=== PATIENT | male | born 1935 | race Caucasian/White ===

== ENCOUNTER 2020-07-16 15:44 | Inpatient (IN) ==
[2020-07-16] MEDS ORDERED: SODIUM CHLORIDE 0.9% 1,000 ML IV STA (18:16)
[2020-07-16 19:17] LABS: Basophils % 0.4 % (0.0-0.8); Eosinophils # 0.2 10*3/uL (0.0-0.87); Eosinophils % 1.4 % (0.00-10.9); Hematocrit 39.1 VOL% (42.0-52.0); Hemoglobin 12.4 GM/DL (14.0-18.0); Immature Granulocytes % 0.4 %; Immature Granulocytes Absolute 0.04 #; Lymphocytes # 1.8 10*3/uL (1.4-4.0); Lymphocytes % 16.5 % (21.2-54.2); Mean Corpuscular HGB Conc 31.7 GM/DL (32-36); Mean Corpuscular Volume 94.9 FL (87-102); Mean Platelet Volume 10.6 FL (9.6-12.0); Monocytes % 7.8 % (1.7-12.7); Neutrophils % 73.5 % (38.7-73.9); Platelet Count 229 T/CUMM (130-400); Red Blood Count 4.12 MC/CUMM (3.8-5.5); Red Cell Distribution Width 13.2 % (9.3-17.3); White Blood Count 10.9 T/CUMM (4-12)
[2020-07-16 19:27] LABS: PT Patient Result 10.8 SECS (9.8-11.9)
[2020-07-16 19:30] LABS: Bilirubin,Urine Negative (Negative); Blood, Urine Large mg/dL (Negative); Glucose,Urine (UA) 50 mg/dL (Negative); Hyaline Casts,Urine 1 /LPF (0-3); Ketones,Urine Negative (Negative); Mucus,Urine Occasional /LPF (Occasional); Nitrite,Urine Negative (Negative); Protein,Urine 100 MG/DL; RBC,Urine 178 /HPF (0-4); Squamous Epithelial Cell,Urine Occasional /HPF (0-10); Urine Appearance Slightly Hazy (Clear); Urine Color Yellow (Yellow); Urine Specific Gravity 1.012 (1.001-1.035); Urine Urobilinogen < 2.0 EU/DL (0.2-1.0); WBC,Urine 23 /HPF (0-6)
[2020-07-16 19:41] LABS: Albumin 3.8 G/DL (3.4-5.0); Bilirubin,Total 0.6 MG/DL (0.2-1.0); Calcium 10.2 MG/DL (8.5-10.1); Potassium 4.8 MMOL/L (3.5-5.1); Total Protein 6.5 G/DL (6.4-8.3)
[2020-07-16] MEDS ORDERED: cefTRIAXone 1,000 MG in SODIUM CHLORIDE 0.9% 100 ML IV STA (20:12)
[2020-07-16] MEDS ORDERED: diphenhydrAMINE CAP 25 MG CAPSULE PO PRN (20:23)
[2020-07-16] MEDS ORDERED: GLUCAGON 1 MG VIAL IM PRN (20:23)
[2020-07-16] MEDS ORDERED: ACETAMINOPHEN 325 MG TABLET PO PRN (20:23)
[2020-07-16] MEDS ORDERED: MORPHINE 4 MG/1 ML VIAL IV PRN (20:23)
[2020-07-16] MEDS ORDERED: NICOTINE 21 MG/24 HR PATCH TRANSDERM PRN (20:23)
[2020-07-16] MEDS ORDERED: DEXTROSE 50% 25 GM/50 ML VIAL IV PRN (20:23)
[2020-07-16] MEDS ORDERED: ONDANSETRON 4 MG/2 ML VIAL IV PRN (20:23)
[2020-07-16] MEDS ORDERED: guaiFENesin/DM ER 600-30 MG TABLET PO PRN (20:23)
[2020-07-16] MEDS ORDERED: BISACODYL 5 MG TABLET PO PRN (20:23)
[2020-07-16] MEDS ORDERED: hydrALAZINE 20 MG/1 ML VIAL IV PRN (20:23)
[2020-07-16] MEDS ORDERED: ALUMINUM/MAGNES/SIMETH MAX STR 30 ML UDCUP PO PRN (20:23)
[2020-07-16] MEDS: SODIUM CHLORIDE 0.9% 1,000 ML IV SCH (22:05)
[2020-07-16] MEDS: ENOXAPARIN 30 MG/0.3 ML SYRINGE SUBCUT SCH (22:20)
[2020-07-16] MEDS: cefTRIAXone 1,000 MG in SYRINGE 1 EACH IV SCH (22:21)
[2020-07-17] MEDS: ZALEPLON 5 MG CAPSULE PO PRN ×2 (00:40→21:46)
[2020-07-17] MEDS: SODIUM CHLORIDE 0.9% 1,000 ML IV SCH (10:20)
[2020-07-17] MEDS: PANTOPRAZOLE 40 MG TABLET PO SCH (10:20)
[2020-07-17] MEDS: ENOXAPARIN 30 MG/0.3 ML SYRINGE SUBCUT SCH (21:46)
[2020-07-17] MEDS: cefTRIAXone 1,000 MG in SYRINGE 1 EACH IV SCH (21:49)
[2020-07-18] MEDS: SODIUM CHLORIDE 0.9% 1,000 ML IV SCH ×2 (05:52→16:52)
[2020-07-18 06:10] LABS: Basophils # 0.1 10*3/uL (0.0-0.2); Basophils % 0.5 % (0.0-0.8); Eosinophils # 0.2 10*3/uL (0.0-0.87); Eosinophils % 1.8 % (0.00-10.9); Hematocrit 34.9 VOL% (42.0-52.0); Hemoglobin 11.5 GM/DL (14.0-18.0); Immature Granulocytes % 0.3 %; Immature Granulocytes Absolute 0.03 #; Lymphocytes # 1.7 10*3/uL (1.4-4.0); Mean Corpuscular Volume 93.6 FL (87-102); Mean Platelet Volume 11.2 FL (9.6-12.0); Monocytes % 8.6 % (1.7-12.7); Neutrophils % 69.8 % (38.7-73.9); Platelet Count 198 T/CUMM (130-400); Red Blood Count 3.73 MC/CUMM (3.8-5.5); White Blood Count 9.1 T/CUMM (4-12)
[2020-07-18 06:39] LABS: Calcium 9.6 MG/DL (8.5-10.1); Osmolality,Calculated 281.3 MOS/KG (273-304); Potassium 4.4 MMOL/L (3.5-5.1)
[2020-07-18] MEDS: PANTOPRAZOLE 40 MG TABLET PO SCH (12:17)
[2020-07-18] MEDS: ENOXAPARIN 40 MG/0.4 ML SYRINGE SUBCUT SCH (20:47)
[2020-07-18] MEDS: cefTRIAXone 1,000 MG in SYRINGE 1 EACH IV SCH (20:48)
[2020-07-19] MEDS: SODIUM CHLORIDE 0.9% 1,000 ML IV SCH (05:13)
[2020-07-19 06:38] LABS: Calcium 9.6 MG/DL (8.5-10.1); Osmolality,Calculated 282.1 MOS/KG (273-304)
[2020-07-19 07:11] LABS: Carcinoembryonic Antigen < 0.5 NG/ML (0.0-5.0)
[2020-07-19] MEDS: PANTOPRAZOLE 40 MG TABLET PO SCH (09:06)
[2020-07-19] MEDS: ZALEPLON 5 MG CAPSULE PO PRN (20:12)
[2020-07-19] MEDS: ENOXAPARIN 40 MG/0.4 ML SYRINGE SUBCUT SCH (20:12)
[2020-07-19] MEDS: cefTRIAXone 1,000 MG in SYRINGE 1 EACH IV SCH (20:12)
[2020-07-20] MEDS: PANTOPRAZOLE 40 MG TABLET PO SCH (09:58)
[2020-07-20] MEDS: cefTRIAXone 1,000 MG in SYRINGE 1 EACH IV SCH (20:45)
[2020-07-20] MEDS: ENOXAPARIN 40 MG/0.4 ML SYRINGE SUBCUT SCH (20:46)
[2020-07-20] MEDS: ZALEPLON 5 MG CAPSULE PO PRN (20:46)
[2020-07-20] MEDS: SODIUM CHLORIDE 0.9% 1,000 ML IV SCH (20:47)
[2020-07-21 08:49] LABS: Calcium 9.7 MG/DL (8.5-10.1); Osmolality,Calculated 278.3 MOS/KG (273-304); Potassium 3.5 MMOL/L (3.5-5.1)
[2020-07-21] MEDS: PANTOPRAZOLE 40 MG TABLET PO SCH (10:06)
[2020-07-21] MEDS ORDERED: SODIUM PHOSPHATE ENEMA 133 ML BOTTLE RECTAL ONE (14:30)
[2020-07-21] MEDS: FINASTERIDE 5 MG TABLET PO SCH (21:10)
[2020-07-21] MEDS: TAMSULOSIN 0.4 MG CAPSULE PO SCH (21:10)
[2020-07-21] MEDS: cefTRIAXone 1,000 MG in SYRINGE 1 EACH IV SCH (21:11)
[2020-07-21] MEDS: ENOXAPARIN 40 MG/0.4 ML SYRINGE SUBCUT SCH (21:11)
[2020-07-21] MEDS: SODIUM CHLORIDE 0.9% 1,000 ML IV SCH (21:11)
[2020-07-21] MEDS: ZALEPLON 5 MG CAPSULE PO PRN (21:26)
[2020-07-22 05:29] LABS: Basophils # 0.1 10*3/uL (0.0-0.2); Basophils % 0.8 % (0.0-0.8); Eosinophils # 0.2 10*3/uL (0.0-0.87); Eosinophils % 2.7 % (0.00-10.9); Hematocrit 36.1 VOL% (42.0-52.0); Hemoglobin 12.2 GM/DL (14.0-18.0); Immature Granulocytes % 0.7 %; Immature Granulocytes Absolute 0.06 #; Lymphocytes # 1.9 10*3/uL (1.4-4.0); Lymphocytes % 21.2 % (21.2-54.2); Mean Corpuscular HGB Conc 33.8 GM/DL (32-36); Mean Corpuscular Volume 89.6 FL (87-102); Mean Platelet Volume 11.1 FL (9.6-12.0); Monocytes % 8.6 % (1.7-12.7); Platelet Count 228 T/CUMM (130-400); Red Blood Count 4.03 MC/CUMM (3.8-5.5); White Blood Count 8.8 T/CUMM (4-12)
[2020-07-22 05:54] LABS: Calcium 10.1 MG/DL (8.5-10.1); Potassium 3.3 MMOL/L (3.5-5.1)
[2020-07-22] MEDS: SODIUM CHLORIDE 0.9% 1,000 ML IV SCH (06:47)
[2020-07-22] MEDS: BISACODYL 5 MG TABLET PO SCH (10:41)
[2020-07-22] MEDS: PANTOPRAZOLE 40 MG TABLET PO SCH (10:41)
[2020-07-22] MEDS: ENOXAPARIN 40 MG/0.4 ML SYRINGE SUBCUT SCH (21:06)
[2020-07-22] MEDS: TAMSULOSIN 0.4 MG CAPSULE PO SCH (21:07)
[2020-07-22] MEDS: FINASTERIDE 5 MG TABLET PO SCH (21:07)
[2020-07-22] MEDS: cefTRIAXone 1,000 MG in SYRINGE 1 EACH IV SCH (21:07)
[2020-07-22] MEDS: ZALEPLON 5 MG CAPSULE PO PRN (23:10)
[2020-07-23] MEDS ORDERED: SODIUM PHOSPHATE ENEMA 133 ML BOTTLE RECTAL SCH (06:00)
[2020-07-23] MEDS: BISACODYL 5 MG TABLET PO SCH ×2 (10:06→11:51)
[2020-07-23] MEDS: PANTOPRAZOLE 40 MG TABLET PO SCH ×2 (10:06→11:52)
[2020-07-23] MEDS: POTASSIUM CHLORIDE RIDER 10 MEQ in PREMIX 1 EACH IV PRN ×4 (12:00→21:55)
[2020-07-23] MEDS ORDERED: fentaNYL 100 MCG/2 ML VIAL ONE (14:12)
[2020-07-23] MEDS ORDERED: NEOMYCIN/POLYMYXIN IRRIG SOLN 1 ML AMP BLADDERIRR ONE (14:15)
[2020-07-23] MEDS ORDERED: GENTAMICIN 80 MG/2 ML VIAL ONE (14:37)
[2020-07-23] MEDS ORDERED: ePHEDrine 50 MG/ML VIAL ONE (14:42)
[2020-07-23] MEDS ORDERED: SODIUM CHLORIDE 0.9% 100 ML IV ONE (14:45)
[2020-07-23] MEDS ORDERED: ROCURONIUM 50 MG/5 ML VIAL IV ONE (14:45)
[2020-07-23] MEDS ORDERED: LIDOCAINE 2% 5 ML VIAL ONE (14:45)
[2020-07-23] MEDS ORDERED: SUCCINYLCHOLINE 200 MG/10 ML VIAL ONE (14:45)
[2020-07-23] MEDS ORDERED: propofoL 200 MG/20 ML VIAL IV ONE (14:45)
[2020-07-23] MEDS ORDERED: LACTATED RINGERS 1,000 ML IV ONE (15:00)
[2020-07-23] MEDS ORDERED: SUGAMMADEX 200 MG/2 ML VIAL IV ONE (15:12)
[2020-07-23] MEDS ORDERED: BELLADONNA/OPIUM 30 MG SUPP RECTAL PRN (16:13)
[2020-07-23] MEDS: ENOXAPARIN 40 MG/0.4 ML SYRINGE SUBCUT SCH ×2 (21:45→21:46)
[2020-07-23] MEDS: ZALEPLON 5 MG CAPSULE PO PRN (21:45)
[2020-07-23] MEDS: FINASTERIDE 5 MG TABLET PO SCH (21:45)
[2020-07-23] MEDS: cefTRIAXone 1,000 MG in SYRINGE 1 EACH IV SCH (21:46)
[2020-07-23] MEDS: TAMSULOSIN 0.4 MG CAPSULE PO SCH (21:46)
[2020-07-23] MEDS: SODIUM CHLORIDE 0.9% 1,000 ML IV SCH ×2 (22:14→22:15)
[2020-07-24] MEDS: TAMSULOSIN 0.4 MG CAPSULE PO SCH ×2 (02:33→21:21)
[2020-07-24] MEDS: FINASTERIDE 5 MG TABLET PO SCH ×2 (02:33→21:21)
[2020-07-24 09:15] LABS: Basophils % 0.5 % (0.0-0.8); Eosinophils # 0.2 10*3/uL (0.0-0.87); Eosinophils % 2.2 % (0.00-10.9); Hematocrit 32.1 VOL% (42.0-52.0); Hemoglobin 10.7 GM/DL (14.0-18.0); Immature Granulocytes % 0.5 %; Immature Granulocytes Absolute 0.04 #; Lymphocytes % 12.6 % (21.2-54.2); Mean Corpuscular HGB Conc 33.3 GM/DL (32-36); Mean Corpuscular Volume 91.5 FL (87-102); Mean Platelet Volume 11.1 FL (9.6-12.0); Monocytes % 9.4 % (1.7-12.7); Neutrophils % 74.8 % (38.7-73.9); Platelet Count 223 T/CUMM (130-400); Red Blood Count 3.51 MC/CUMM (3.8-5.5); Red Cell Distribution Width 13.4 % (9.3-17.3); White Blood Count 7.9 T/CUMM (4-12)
[2020-07-24 09:20] LABS: Calcium 10.2 MG/DL (8.5-10.1); Potassium 3.9 MMOL/L (3.5-5.1)
[2020-07-24] MEDS: SODIUM CHLORIDE 0.9% 1,000 ML IV SCH (12:21)
[2020-07-24] MEDS: PANTOPRAZOLE 40 MG TABLET PO SCH (14:16)
[2020-07-24] MEDS: BISACODYL 5 MG TABLET PO SCH (14:16)
[2020-07-24] MEDS ORDERED: LORazepam 2 MG/1 ML VIAL IV ONE (21:12)
[2020-07-24] MEDS: ZALEPLON 5 MG CAPSULE PO PRN (21:21)
[2020-07-24] MEDS: ENOXAPARIN 40 MG/0.4 ML SYRINGE SUBCUT SCH (21:21)
[2020-07-24] MEDS: cefTRIAXone 1,000 MG in SYRINGE 1 EACH IV SCH (21:28)
[2020-07-25 06:11] LABS: Basophils # 0.1 10*3/uL (0.0-0.2); Basophils % 0.7 % (0.0-0.8); Eosinophils # 0.1 10*3/uL (0.0-0.87); Eosinophils % 1.7 % (0.00-10.9); Hematocrit 34.1 VOL% (42.0-52.0); Hemoglobin 11.6 GM/DL (14.0-18.0); Immature Granulocytes % 0.4 %; Immature Granulocytes Absolute 0.03 #; Lymphocytes # 1.5 10*3/uL (1.4-4.0); Lymphocytes % 20.2 % (21.2-54.2); Mean Corpuscular Volume 90.5 FL (87-102); Mean Platelet Volume 11.3 FL (9.6-12.0); Monocytes % 9.5 % (1.7-12.7); Neutrophils % 67.5 % (38.7-73.9); Platelet Count 244 T/CUMM (130-400); Red Blood Count 3.77 MC/CUMM (3.8-5.5); Red Cell Distribution Width 13.2 % (9.3-17.3); White Blood Count 7.2 T/CUMM (4-12)
[2020-07-25 06:29] LABS: Calcium 10.5 MG/DL (8.5-10.1); Osmolality,Calculated 287.7 MOS/KG (273-304); Potassium 3.8 MMOL/L (3.5-5.1)
[2020-07-25] MEDS: BISACODYL 5 MG TABLET PO SCH (09:18)
[2020-07-25] MEDS: PANTOPRAZOLE 40 MG TABLET PO SCH (09:18)
[2020-07-25] MEDS ORDERED: ZOLEDRONIC ACID 4 MG in PREMIX 1 EACH IV ONE (12:02)
[2020-07-25] MEDS: SODIUM CHLORIDE 0.9% 1,000 ML IV SCH (14:49)
[2020-07-25] MEDS: TAMSULOSIN 0.4 MG CAPSULE PO SCH (21:21)
[2020-07-25] MEDS: FINASTERIDE 5 MG TABLET PO SCH (21:21)
[2020-07-25] MEDS: ENOXAPARIN 40 MG/0.4 ML SYRINGE SUBCUT SCH (21:22)
[2020-07-25] MEDS: cefTRIAXone 1,000 MG in SYRINGE 1 EACH IV SCH (21:22)
[2020-07-26] MEDS: BISACODYL 5 MG TABLET PO SCH (09:57)
[2020-07-26] MEDS: PANTOPRAZOLE 40 MG TABLET PO SCH (09:58)
[2020-07-26] MEDS ORDERED: SODIUM PHOSPHATE ENEMA 133 ML BOTTLE RECTAL ONE (12:01)
[2020-07-26] MEDS: FINASTERIDE 5 MG TABLET PO SCH (22:11)
[2020-07-26] MEDS: cefTRIAXone 1,000 MG in SYRINGE 1 EACH IV SCH (22:12)
[2020-07-26] MEDS: ZALEPLON 5 MG CAPSULE PO PRN (22:12)
[2020-07-26] MEDS: ENOXAPARIN 40 MG/0.4 ML SYRINGE SUBCUT SCH (22:12)
[2020-07-26] MEDS: TAMSULOSIN 0.4 MG CAPSULE PO SCH (22:12)
[2020-07-27 05:08] LABS: Basophils % 0.5 % (0.0-0.8); Eosinophils # 0.2 10*3/uL (0.0-0.87); Eosinophils % 2.4 % (0.00-10.9); Hematocrit 34.6 VOL% (42.0-52.0); Hemoglobin 11.4 GM/DL (14.0-18.0); Immature Granulocytes % 0.5 %; Immature Granulocytes Absolute 0.04 #; Lymphocytes # 1.1 10*3/uL (1.4-4.0); Lymphocytes % 13.4 % (21.2-54.2); Mean Corpuscular HGB Conc 32.9 GM/DL (32-36); Mean Platelet Volume 10.6 FL (9.6-12.0); Monocytes % 9.5 % (1.7-12.7); Neutrophils % 73.7 % (38.7-73.9); Platelet Count 251 T/CUMM (130-400); Red Blood Count 3.72 MC/CUMM (3.8-5.5); Red Cell Distribution Width 13.2 % (9.3-17.3)
[2020-07-27 05:26] LABS: Calcium 10.3 MG/DL (8.5-10.1); Osmolality,Calculated 290.6 MOS/KG (273-304); Potassium 3.3 MMOL/L (3.5-5.1)
[2020-07-27] MEDS ORDERED: SODIUM PHOSPHATE ENEMA 133 ML BOTTLE RECTAL SCH (07:30)
[2020-07-27] MEDS: BISACODYL 5 MG TABLET PO SCH (11:54)
[2020-07-27] MEDS: PANTOPRAZOLE 40 MG TABLET PO SCH (11:55)
[2020-07-27] MEDS ORDERED: GENTAMICIN 80 MG/2 ML VIAL ONE (14:50)
[2020-07-27] MEDS ORDERED: propofoL 200 MG/20 ML VIAL IV ONE (15:17)
[2020-07-27] MEDS ORDERED: LIDOCAINE 2% 5 ML VIAL ONE (15:17)
[2020-07-27] MEDS ORDERED: PHENYLEPHRINE 1 MG/10 ML SYRINGE IV ONE (15:17)
[2020-07-27] MEDS: SODIUM CHLORIDE 0.9% 1,000 ML IV SCH (17:04)
[2020-07-27] MEDS: ENOXAPARIN 40 MG/0.4 ML SYRINGE SUBCUT SCH (22:50)
[2020-07-27] MEDS: cefTRIAXone 1,000 MG in SYRINGE 1 EACH IV SCH (22:53)
[2020-07-27] MEDS: FINASTERIDE 5 MG TABLET PO SCH (22:55)
[2020-07-27] MEDS: TAMSULOSIN 0.4 MG CAPSULE PO SCH (22:55)
[2020-07-28] MEDS: BISACODYL 5 MG TABLET PO SCH ×2 (10:38→11:06)
[2020-07-28] MEDS: PANTOPRAZOLE 40 MG TABLET PO SCH ×2 (10:38→11:07)
[2020-07-28 16:13] VITALS: BP 140/74
== END 2020-07-28 19:01 | disposition home health service (06) | DRG 668 ==
LOC: N.ED 15:44 → N.EDINP 20:24 → SUATTDRO 20:24 → N.3E 20:51
PROVIDERS: ADMIT Internal Medicine; ATTEND Internal Medicine